=== PATIENT | male | born 1990 | race Caucasian/White ===

== ENCOUNTER 2018-03-23 10:32 | Emergency (ER) | END 2018-03-23 15:56 | disposition home or self-care (01) ==

== ENCOUNTER → 2018-06-07 | Day surgery (SDC) | END | disposition home or self-care (01) ==

== ENCOUNTER 2018-06-14 13:27 | Day surgery (SDC) | END 2018-06-14 16:47 | disposition home or self-care (01) ==

== ENCOUNTER 2018-11-13 20:48 | Emergency (ER) | payer OTHER ==
[~2018-11-13] VITALS: Ht 182.9 cm; Wt 92.7 kg
[~2018-11-13 20:48] MED LIST: LINZESS; NO MEDS
[2018-11-13 20:50] VITALS: BP 163/110; PULSE 88; RESP 18; Ht 182.9 cm; Wt 92.7 kg
[2018-11-13] MEDS ORDERED: ONDANSETRON (ODT) 4 MG TAB ODT STA (22:25)
--- NOTE | 2018-11-13 22:27 | ERD ---
ER Documentation Chief Complaint Chief Complaint vomiting/abdominal pain x 2 days HPI This is a 28-year-old male who presents emergency department with complaints of epigastric pain, nausea, vomiting for about 2 days. Stated that he vomited twice times with nonbilious nonbloody emesis today. Has watery stools today. Denies headache, head injury, loss of consciousness, dizziness, neck pain, neck stiffness, throat pain, difficulty swallowing, difficulty breathing lying flat, shoulder pain, chest pain, back pain, constipation, diarrhea, urinary symptoms, loss of bowel and bladder control, trauma, injury, falls, difficulty walking due to pain, numbness or tingling sensation, calf pain, recent travel, recent major surgery in the last 3 weeks, calf pain, recent long travel, recent exposure to any illness, recent antibiotic use in the last 3 months, fever, chills, seizures. Past medical history: Denies. Surgical history: Denies. Social: Denies smoking, use of alcoholic beverages, use of illegal drugs. ROS All systems reviewed and are negative except as per history of present illness. Medications Home Meds Active Scripts Famotidine* (Pepcid*) 20 Mg Tablet, 20 MG PO DAILY for 30 Days, TAB Prov:FILIPATRICIARUBEN 11/13/18 Ondansetron (Ondansetron Odt) 4 Mg Tab.rapdis, 4 MG PO Q6H PRN for NAUSEA AND/OR VOMITING, #30 TAB Prov:FILIILABANRUBEN F 11/13/18 Acetaminophen* (Tylophen*) 500 Mg Capsule, 1 CAP PO Q6H PRN for PAIN AND OR ELEVATED TEMP, #20 CAP Prov:FILIILAKENDALLRUBEN Pollard 11/13/18 Ibuprofen* (Motrin*) 800 Mg Tab, 800 MG PO Q6H PRN for PAIN AND OR ELEVATED TEMP, #30 TAB Prov:RUBEN DING F 11/13/18 Reported Medications [No Meds] No Conflict Check 06/14/18 [Linzess] No Conflict Check 06/07/18 Allergies Allergies: Coded Allergies: No Known Allergy (Unverified , 06/07/18) PMhx/Soc History of Surgery: No Anesthesia Reaction: No Hx Neurological Disorder: No Hx Respiratory Disorders: No Hx Cardiac Disorders: No Hx Psychiatric Problems: No Hx Miscellaneous Medical Probl: No Hx Alcohol Use: No Hx Substance Use: No Hx Tobacco Use: No Smoking Status: Never smoker Physical Exam Vitals Vital Signs Date Temp Pulse Resp B/P (MAP) Pulse Ox O2 O2 Flow FiO2 Time Delivery Rate 11/13/18 98.2 88 18 163/110 98 20:50 (127) Physical Exam Const: No acute distress Head: Atraumatic Eyes: Normal Conjunctiva ENT: Normal External Ears, Nose and Mouth. Neck: Full range of motion. No meningismus. Resp: Clear to auscultation bilaterally Cardio: Regular rate and rhythm, no murmurs Abd: Soft, non distended. Normal bowel sounds. Has right upper abdominal tenderness slightly palpation. Negative Rovsing sign. Negative psoas sign. Negative Dominga sign (heel jar test). No CVA tenderness. Able to jump 5 times without developing lower abdominal pain. Skin: No petechiae or rashes Back: No midline or flank tenderness Ext: No cyanosis, or edema Neur: Awake and alert. No neurological deficit. Psych: Normal Mood and Affect Result Diagram: 11/13/18223111/13/182230 Results 24 hrs Laboratory Tests Test 11/13/18 22:31 11/13/18 22:32 11/13/18 22:33 Urine Color PANCHO Urine Clarity SLIGHTLY CLOUDY Urine pH 5.0 Urine Specific Leland 1.038 Urine Ketones TRACE mg/dL Urine Nitrite NEGATIVE mg/dL Urine Bilirubin 1+ mg/dL Urine Urobilinogen NEGATIVE mg/dL Urine Leukocyte Esterase NEGATIVE Aimee/ul Urine Microscopic RBC 1 /HPF Urine Microscopic WBC 3 /HPF Urine Bacteria FEW /HPF Urine Mucus MANY /HPF Urine Hemoglobin NEGATIVE mg/dL Urine Glucose NEGATIVE mg/dL Urine Total Protein 2+ mg/dl Sodium Level 140 mmol/L Potassium Level 3.4 mmol/L Chloride Level 99 mmol/L Carbon Dioxide Level 20 mmol/L Anion Gap 21 Blood Urea Nitrogen 12 mg/dl Creatinine 0.97 mg/dl Est Glomerular Filtrat > 60 mL/min Rate mL/min Glucose Level 134 mg/dl Calcium Level 10.5 mg/dl Total Bilirubin 1.3 mg/dl Direct Bilirubin 0.00 mg/dl Indirect Bilirubin 1.3 mg/dl Aspartate Amino 35 IU/L Transf (AST/SGOT) Alanine 40 IU/L Aminotransferase (ALT/SGPT) Alkaline Phosphatase 107 IU/L Total Protein 9.3 g/dl Albumin 5.4 g/dl Globulin 3.90 g/dl Albumin/Globulin Ratio 1.38 Amylase Level 77 U/L Lipase 31 U/L Urine Opiates Screen Negative Urine Barbiturates Negative Urine Amphetamines Screen Negative Urine Benzodiazepines Screen Negative Urine Cocaine Screen Negative Urine Cannabinoids Positive White Blood Count 13.4 10^3/ul Red Blood Count 5.84 10^6/ul Hemoglobin 18.0 g/dl Hematocrit 51.3 % Mean Corpuscular Volume 87.8 fl Mean Corpuscular Hemoglobin 30.8 pg Mean Corpuscular 35.1 g/dl Hemoglobin Concent Red Cell Distribution Width 12.0 % Platelet Count 487 10^3/UL Mean Platelet Volume 8.6 fl Immature Granulocytes % 0.700 % Neutrophils % 81.9 % Lymphocytes % 10.3 % Monocytes % 6.5 % Eosinophils % 0.2 % Basophils % 0.4 % Nucleated Red Blood Cells % 0.0 /100WBC Immature Granulocytes # 0.090 10^3/ul Neutrophils # 11.0 10^3/ul Lymphocytes # 1.4 10^3/ul Monocytes # 0.9 10^3/ul Eosinophils # 0.0 10^3/ul Basophils # 0.1 10^3/ul Nucleated Red Blood Cells # 0.0 10^3/ul Bedside Glucose 116 mg/dL Current Medications Medications Dose Sig/Lei Start Time Status Last (Trade) Ordered Route PRN Stop Time Admin Dose Reason Admin Ondansetron 4 mg ONCE STAT 11/13/18 DC 11/13/18 HCl (Zofran ODT 22:25 22:31 Odt) 11/13/18 22:27 40 ml ONCE ONCE 11/13/18 DC 11/13/18 Miscellaneous PO 22:30 22:31 Medication 11/13/18 22:31 (Gi Cocktail (2)) Famotidine 40 mg ONCE ONCE 11/13/18 DC 11/13/18 (Pepcid) PO 23:30 23:31 11/13/18 23:31 Procedures/MDM Diagnostic tests: Urinalysis: Reviewed. Urine drug screen: Negative. Blood works: Reviewed. Abdominal ultrasound: Unremarkable right upper abdominal ultrasound. Treatment: Zofran ODT. GI cocktail. Re-evaluation: No episode of emesis here in the emergency department. Negative Paz sign. Negative Dominga sign (heel jar test). Negative psoas sign. Able to jump 5 times without developing lower abdominal pain. No CVA tenderness. Ambulatory with steady gait. Differential diagnosis I have low suspicion for pancreatitis, cholecystitis, diverticulitis, diverticulitis with abscess, appendicitis, nephrolithiasis, pyelonephritis, obstructing kidney stone, septic stone, inguinal hernia, testicular torsion. Final diagnosis: Gastroenteritis. Vomiting. Prescription: Zofran. Motrin. Tylenol. Pepcid. Follow-up with PCP in the next 24-48 hours. Come back here in the emergency department for any new symptoms or any worsening symptoms. All questions and concerns were answered. Patient and family members verbalized understanding and agreed with plan of care. Hemodynamically stable on discharge. Departure Diagnosis: Primary Impression: Vomiting Additional Impression: Gastroenteritis Condition: Stable Additional Instructions: Follow-up with PCP in the next 24-48 hours. Come back here in the emergency department for any new symptoms or any worsening symptoms. RUBEN DING Nov 13, 2018 22:27
[2018-11-13] MEDS ORDERED: LIDOCAINE/MYLANTA 40 ML BTL PO ONE (22:30)
[2018-11-13] MEDS ORDERED: IBUP800T48 PO (23:19)
[2018-11-13] MEDS ORDERED: FAMO-96 PO (23:19)
[2018-11-13] MEDS ORDERED: ONDA4TAB14 PO (23:19)
[2018-11-13] MEDS ORDERED: ACET500C5 PO (23:19)
[2018-11-13] MEDS ORDERED: FAMOTIDINE 20 MG TAB PO ONE (23:30)
== END 2018-11-13 23:36 | disposition home or self-care (01) ==
LOC: FTE 20:48
DX: K52.9 Noninfective gastroenteritis and colitis, unspecified (principal)
CPT/HCPCS: 76705; 80053; 80307; 81001; 82150; 82962; 83690; 85025; Z7502; Z7610